=== PATIENT | male | born 1990 ===

== ENCOUNTER 2018-07-17 14:30 | Emergency (ER) ==
[2018-07-17 15:02] LABS: INR 1.02 (0.86-1.12)
[2018-07-17 15:11] LABS: BASOPHILS % (AUTO) 2 % (0-3); EOSINOPHILS % (AUTO) 1 % (0-9); HEMATOCRIT 50 % (39-53); HEMOGLOBIN 16.9 gm/dl (13.5-17.7); LYMPHOCYTES % (AUTO) 35.2 % (10-50); MEAN CORPUSCULAR HEMOGLOBIN 30.4 pg (27.0-32.0); MEAN CORPUSCULAR VOLUME 89 fL (80-100); MONOCYTES % (AUTO) 10.1 % (0-12); NEUTROPHILS % (AUTO) 52.1 % (37-80)
[2018-07-17 15:30] VITALS: TEMP 98.4
[2018-07-17] MEDS ORDERED: ACETAMINOPHEN 325 MG PO ONE (15:45)
[2018-07-17] MEDS ORDERED: ACETAMINOPHEN 325 MG ONE (15:58)
[2018-07-17 16:02] LABS: BILIRUBIN,TOTAL 0.3 mg/dl (0.2-1.0); CALCIUM 9.1 mg/dl (8.5-10.1); CARBON DIOXIDE 28.9 mEq/L (21-32); CREATININE 1.15 mg/dl (0.80-1.30); POTASSIUM 4.3 mMol/L (3.5-5.1)
[2018-07-17] MEDS ORDERED: LORAZEPAM 0.5 MG TAB PO ONE (17:13)
[2018-07-17] MEDS ORDERED: LORAZEPAM 0.5 MG TAB ONE (17:18)
[2018-07-17 20:12] VITALS: BP 149/95; PULSE 91; RESP 16; O2SAT 100
== END 2018-07-17 19:15 | DRG 951 ==
LOC: ED 14:30
DX: Z76.5 Malingerer [conscious simulation] (principal); I63.89 Other cerebral infarction; R40.2362 Coma scale, best motor response, obeys commands, at arrival to emergency department; R40.2142 Coma scale, eyes open, spontaneous, at arrival to emergency department; R40.2252 Coma scale, best verbal response, oriented, at arrival to emergency department
CPT/HCPCS: 36415; 70450; 71045; 80053; 85025; 85610; 93005; 99283; 99285; A9270-GY